=== PATIENT | female | born 1965 | race Caucasian/White ===

== ENCOUNTER 2025-08-16 06:00 | Day surgery (SDC) | payer OTHER ==
[~2025-08-16 06:00] MED LIST: LOVAZA1 GM; NOXIFOL-D32500 UNIT; ZIAC
[2025-08-16] MEDS ORDERED: METRONIDAZOLE/SODIUM CHLORIDE 500 MG/100 ML PIGGYBACK IV ONE (07:09)
[2025-08-16] MEDS ORDERED: POVIDONE-IODINE 118 ML BOTT TOP ONE (07:24)
== END 2025-08-16 13:20 | disposition home or self-care (01) ==
LOC: CIR.AMB 06:00 → EDBD 12:15 → CIR.AMB 12:15
PROVIDERS: ATTEND Obstetrics & Gynecology
DX: N84.0 Polyp of corpus uteri (principal); N84.1 Polyp of cervix uteri